=== PATIENT | female | born 1970 | race African-American/Black ===

== ENCOUNTER 2021-10-11 04:19 | Inpatient (IN) | payer OTHER ==
[2021-10-08 08:14] VITALS: BMI 35.0
[2021-10-11] MEDS ORDERED: GABAPENTIN 300 MG CAPSULE PO ONE (06:00)
[2021-10-11] MEDS ORDERED: PHENAZOPYRIDINE HCL 100 MG TABLET (FP) PO ONE (06:00)
[2021-10-11] MEDS ORDERED: BUPIVACAINE HCL/PF 0.5% (5MG/ML) 10 ML VIAL ONE (07:08)
[2021-10-11] MEDS ORDERED: BUPIVACAINE LIPOSOME/PF (EXPAREL) 266 MG/20 ML VIAL ONE (07:09)
[2021-10-11] MEDS ORDERED: MIDAZOLAM HCL 2 MG/2 ML SINGLE DOSE VIAL ONE ×3 (07:17→07:38)
[2021-10-11] MEDS ORDERED: PROPOFOL 20 ML ONE ×2 (07:38)
[2021-10-11] MEDS ORDERED: ROCURONIUM BROMIDE 50 MG/5 ML SYRINGE ONE (07:39)
[2021-10-11] MEDS ORDERED: SUCCINYLCHOLINE CHLORIDE 200 MG/10 ML SYRINGE ONE (07:39)
[2021-10-11] MEDS ORDERED: LIDOCAINE HCL/PF 2% SDV 5ML VIAL ONE (07:59)
[2021-10-11] MEDS ORDERED: TRANEXAMIC ACID 1000 MG/10 ML VIAL IVPUSH ONE (08:00)
[2021-10-11] MEDS ORDERED: CEFAZOLIN 3 GM in DEXTROSE 5%-WATER - 100 ML IVPB ONE (08:00)
[2021-10-11] MEDS ORDERED: ceFAZolin 2 GRAM PREMIX BAG IVPB ONE (08:05)
[2021-10-11] MEDS ORDERED: HYDROmorphone HCl 2 MG/ML VIAL IVPUSH PRN ×2 (08:25)
[2021-10-11] MEDS ORDERED: ONDANSETRON 4 MG/2 ML VIAL IVPUSH PRN ×2 (08:25→09:56)
[2021-10-11] MEDS ORDERED: NEOSTIGMINE METHYLSULFATE 0.5 MG/ML - 10 ML MDV ONE (09:25)
[2021-10-11] MEDS ORDERED: BISACODYL 5 MG TABLET.DR (FP) PO PRN (09:56)
[2021-10-11] MEDS ORDERED: oxyCODONE HCL 5 MG TABLET PO PRN ×2 (09:56)
[2021-10-11] MEDS: LACTATED RINGERS SOLUTION 1,000 ML IV SCH (12:15)
[2021-10-11] MEDS ORDERED: DEXTROSE 5%-WATER - 50 ML IVPB ONE ×2 (15:20→23:01)
[2021-10-11] MEDS ORDERED: ceFAZolin SODIUM 1 GM VIAL ONE ×2 (15:20→23:02)
[2021-10-11] MEDS: CEFAZOLIN 1 GM in DEXTROSE 5%-WATER - 1 GM/50 ML IVPB IVPB SCH ×2 (15:29→23:11)
[2021-10-11] MEDS: ACETAMINOPHEN 325 MG TABLET (FP) PO PRN (15:29)
[2021-10-11 18:44] LABS: HEMATOCRIT 27.5 % (32.4-45.2); MCH 26.6 pg (25.7-33.7); MCHC 32.6 g/dl (32.0-36.0); MEAN CELL VOLUME 81.5 fl (80-96); MEAN PLT VOLUME 8.5 fl (7.5-11.1); PLATELET COUNT 253 10^3/uL (134-434); RBC 3.38 M/mm3 (3.60-5.2); RDW 19.9 % (11.6-15.6); WHITE BLOOD COUNT 9.2 K/mm3 (4.0-10.0)
[2021-10-11] MEDS: SIMETHICONE 80 MG TAB.CHEW (FP) PO PRN (19:33)
[2021-10-11 21:55] LABS: CALCIUM 8.6 mg/dL (8.5-10.1)
[2021-10-11 21:56] LABS: BLOOD UREA NITROGEN 10.5 mg/dL (7-18)
[2021-10-11 21:59] LABS: CREATININE 1.1 mg/dL (0.55-1.3)
[2021-10-12] MEDS: IBUPROFEN 800 MG/8 ML IJ IVPB PRN ×2 (01:57→21:13)
[2021-10-12] MEDS: LACTATED RINGERS SOLUTION 1,000 ML IV SCH (03:47)
[2021-10-12] MEDS ORDERED: ceFAZolin SODIUM 1 GM VIAL ONE ×2 (07:40→15:33)
[2021-10-12] MEDS ORDERED: DEXTROSE 5%-WATER - 50 ML IVPB ONE ×2 (07:40→15:33)
[2021-10-12] MEDS: CEFAZOLIN 1 GM in DEXTROSE 5%-WATER - 1 GM/50 ML IVPB IVPB SCH ×2 (07:48→15:43)
[2021-10-12] MEDS: ACETAMINOPHEN 325 MG TABLET (FP) PO PRN ×2 (07:50→15:43)
[2021-10-12 08:14] LABS: HEMATOCRIT 24.1 % (32.4-45.2); HEMOGLOBIN 7.8 GM/dL (10.7-15.3); MCH 26.3 pg (25.7-33.7); MCHC 32.5 g/dl (32.0-36.0); MEAN CELL VOLUME 80.9 fl (80-96); MEAN PLT VOLUME 8.7 fl (7.5-11.1); PLATELET COUNT 245 10^3/uL (134-434); RBC 2.98 M/mm3 (3.60-5.2); RDW 19.8 % (11.6-15.6); WHITE BLOOD COUNT 7.7 K/mm3 (4.0-10.0)
[2021-10-12 08:36] LABS: CALCIUM 8.5 mg/dL (8.5-10.1)
[2021-10-12] MEDS: ENOXAPARIN NA (PORCINE) 40 MG/0.4 ML DISP.SYRIN SQ SCH (09:21)
[2021-10-12 15:33] LABS: EPI CELLS 8 /uL (0-25.1); HYALINE CASTS 0 /uL (0-3.1); PH,URINE 5.5 (5.0-8.0); URINE APPEARANCE CLEAR; URINE BACTERIA 2 /uL (0-1359); URINE BILIRUBIN NEGATIVE (NEGATIVE); URINE COLOR YELLOW; URINE GLUCOSE (UA) NEGATIVE (NEGATIVE); URINE KETONE NEGATIVE (NEGATIVE); URINE LEUK ESTERASE NEGATIVE (NEGATIVE); URINE NITRITE NEGATIVE (NEGATIVE); URINE PROTEIN NEGATIVE (NEGATIVE); URINE RBC 4 /uL (0-23.9); URINE UROBILINOGEN 0.2 mg/dL (0.2-1.0); URINE WBC 4 /uL (0-25.8)
[2021-10-12] MEDS: DOCUSATE SODIUM 100 MG CAPSULE (FP) PO PRN (21:07)
[2021-10-12] MEDS: SIMETHICONE 80 MG TAB.CHEW (FP) PO PRN (21:08)
[2021-10-13] MEDS ORDERED: ceFAZolin SODIUM 1 GM VIAL ONE ×2 (00:36→09:29)
[2021-10-13] MEDS ORDERED: DEXTROSE 5%-WATER - 50 ML IVPB ONE ×2 (00:36→09:29)
[2021-10-13] MEDS: CEFAZOLIN 1 GM in DEXTROSE 5%-WATER - 1 GM/50 ML IVPB IVPB SCH ×2 (00:41→09:32)
[2021-10-13 06:13] LABS: BASO % 0.8 % (0-2.0); EOS % 2.1 % (0-4.5); HEMATOCRIT 22.4 % (32.4-45.2); HEMOGLOBIN 7.1 GM/dL (10.7-15.3); LYMPH % 26.1 % (8-40); MCH 25.8 pg (25.7-33.7); MCHC 31.6 g/dl (32.0-36.0); MEAN CELL VOLUME 81.7 fl (80-96); MEAN PLT VOLUME 8.5 fl (7.5-11.1); MONO % 9.1 % (3.8-10.2); NEUT % 61.9 % (42.8-82.8); PLATELET COUNT 246 10^3/uL (134-434); RBC 2.74 M/mm3 (3.60-5.2); RDW 19.8 % (11.6-15.6); WHITE BLOOD COUNT 5.1 K/mm3 (4.0-10.0)
[2021-10-13 06:29] LABS: CHLORIDE 110 mmol/L (98-107); SODIUM 142 mmol/L (136-145)
[2021-10-13 06:31] LABS: ALBUMIN 2.7 g/dl (3.4-5.0); ANION GAP 5 MMOL/L (8-16); CALCIUM 7.9 mg/dL (8.5-10.1); CO2 28 mmol/L (21-32); GLUCOSE,RANDOM 101 mg/dL (74-106)
[2021-10-13 06:32] LABS: BLOOD UREA NITROGEN 11.4 mg/dL (7-18)
[2021-10-13 06:34] LABS: CREATININE 0.8 mg/dL (0.55-1.3); SGOT/AST 13 U/L (15-37); SGPT/ALT 14 U/L (13-61)
[2021-10-13 06:36] LABS: BILIRUBIN,TOTAL < 0.1 mg/dL (0.2-1); TOT PROT 5.4 g/dl (6.4-8.2)
[2021-10-13 06:37] LABS: ALK PHOS 62 U/L (45-117)
[2021-10-13 08:11] VITALS: BP 115/77; PULSE 83; TEMP 98.2
[2021-10-13] MEDS ORDERED: ACETAMINOPHEN 500 MG TABLET (FP) PO PRN (08:56)
[2021-10-13] MEDS ORDERED: IBUPROFEN 600 MG TABLET (FP) PO PRN (08:57)
[2021-10-13] MEDS ORDERED: oxyCODONE HCL 5 MG TABLET PO PRN (08:58)
[2021-10-13] MEDS: DOCUSATE SODIUM 100 MG CAPSULE (FP) PO PRN (09:32)
[2021-10-13] MEDS: ENOXAPARIN NA (PORCINE) 40 MG/0.4 ML DISP.SYRIN SQ SCH (09:32)
[2021-10-13] MEDS ORDERED: FERROUS SO4 325 MG TABLET (FP) PO SCH (10:00)
== END 2021-10-13 11:06 | disposition home or self-care (01) | DRG 743 ==
LOC: J2C 04:19 → J3W 12:20
PROVIDERS: ADMIT Obstetrics & Gynecology; ATTEND Obstetrics & Gynecology
PROC: 0UT70ZZ Resection of Bilateral Fallopian Tubes, Open Approach (ICD-10-PCS; 2021-10-11)
PROC: 0UT90ZZ Resection of Uterus, Open Approach (ICD-10-PCS; principal; 2021-10-11 07:30)
DX: D25.1 Intramural leiomyoma of uterus (principal); N92.0 Excessive and frequent menstruation with regular cycle; D25.0 Submucous leiomyoma of uterus
CPT/HCPCS: 36415; 80048; 80053; 81003; 81025; 85025; 85027; 86850; 86900; 86901; 88302-TC; 88305-TC; 88309-TC; 94010; 94760